=== PATIENT | female | born 1975 | race Caucasian/White ===

== ENCOUNTER 2021-03-06 22:32 | Emergency (ER) | payer OTHER ==
[~2021-03-06] VITALS: Ht 167.6 cm; Wt 107.7 kg
[2021-03-06] MEDS ORDERED: ONDANSETRON 2MG/ML, 2ML ONE (23:09)
[2021-03-06] MEDS ORDERED: MAALOX/HYOSCYAMINE/LIDOCAINE 45 ML BTL ONE (23:09)
[2021-03-06] MEDS ORDERED: FAMOTIDINE 20 MG/2 ML ONE (23:10)
--- NOTE | 2021-03-06 23:20 | NUR ---
PT AMBULATORY WITH STEADY GAIT FROM LOBBY TO ROOM 17. PT CHANGED INTO GOWN AND PLACED ON CONTINUOUS MONITORING
[2021-03-06 23:21] LABS: BASOPHILS % (AUTO) 1 % (0-1); EOSINOPHILS % (AUTO) 0 % (1-7); LYMPHOCYTES % (AUTO) 12 % (22-44); MD NO; MEAN CORPUSCULAR HEMOGLOBIN 31.2 pg (27.0-34.8); MEAN CORPUSCULAR HGB CONC 34.3 g/dL (32.4-35.8); MEAN PLATELET VOLUME 8.7 fL (7.4-10.4); MONOCYTES % (AUTO) 5 % (2-9); NEUTROPHILS % (AUTO) 82 % (42-75); PLATELET COUNT 462 x10^3/uL (130-400); RED BLOOD COUNT 4.33 x10^6/uL (3.82-5.3)
[2021-03-06 23:28] LABS: ANION GAP 7 mmol/L (5-15); CHLORIDE 104 mmol/L (98-107); CREATININE 0.92 mg/dL (0.55-1.02)
[2021-03-06 23:29] LABS: ALANINE AMINOTRANSFERASE 23 U/L (12-78)
[2021-03-06] MEDS ORDERED: SODIUM CHLORIDE 0.9% 1,000ML IVBOLUS ONE (23:30)
[2021-03-06] MEDS ORDERED: MAALOX/HYOSCYAMINE/LIDOCAINE 45 ML BTL PO ONE (23:30)
[2021-03-06] MEDS ORDERED: FAMOTIDINE 20 MG/2 ML IVPush ONE (23:30)
[2021-03-06] MEDS ORDERED: ONDANSETRON 2MG/ML, 2ML IVPush ONE (23:30)
[2021-03-06] MEDS ORDERED: SODIUM CHLORIDE FLUSH 10ML SYR IVF ONE (23:30)
[2021-03-06 23:31] LABS: ALKALINE PHOSPHATASE 77 U/L (45-117); BILIRUBIN,TOTAL 0.4 mg/dL (0.2-1.0)
--- NOTE | 2021-03-06 23:40 | NUR ---
20 G IV STARTED, MEDS GIVEN, PT HOOKED TO ALL MONITORS AND IS RESTING COMFORTABLY ON GURNEY. DENIES ANY NEEDS AT THIS TIME.
--- NOTE | 2021-03-06 23:58 | NUR ---
PT STARTING TO DRINK WATER, PT STATES FEELING RELIEF FROM CRAMPING AND NAUSEA SINCE MEDICATION.
--- NOTE | 2021-03-07 00:05 | NUR ---
WHILE DRINKING, PT STARTED HAVING SEVERE CRAMPING. PT WAS ABLE TO GET UP AND GO TO THE BATHROOM FOR UA AT THIS TIME TOO.
[2021-03-07 00:28] LABS: MICROSCOPIC INDICATED
[2021-03-07] MEDS ORDERED: HYDROcodone/APAP 5/325 TABLET ONE (00:42)
--- NOTE | 2021-03-07 00:45 | NUR ---
PT REQUESTING PAIN MEDICATION, ERP AWARE. PT MEDICATED PER EMAR. NO ADDITIONAL NEEDS AT THIS TIME. CALL LIGHT AND BELONGINGS WITHIN REACH.
[2021-03-07] MEDS ORDERED: HYDROcodone/APAP 5/325 TABLET PO ONE (01:00)
--- NOTE | 2021-03-07 01:18 | NUR ---
Patient given discharge instructions and they have confirmed that they understand the instructions. Patient ambulatory with steady gait.
[2021-03-07 01:19] VITALS: BP 165/70
== END 2021-03-07 01:31 | disposition home or self-care (01) ==
LOC: ED 03-07 01:15
DX: R11.2 Nausea with vomiting, unspecified (principal); R10.84 Generalized abdominal pain; R19.7 Diarrhea, unspecified; E66.01 Morbid (severe) obesity due to excess calories; Z68.38 Body mass index [BMI] 38.0-38.9, adult
CPT/HCPCS: 36415; 74021; 80053; 81001; 83690; 85025; 96361; 96374; 96375; 99284; J2405; J7030